=== PATIENT | male | born 1980 | race African-American/Black ===

== ENCOUNTER 2023-10-25 11:05 | Emergency (ER) | payer OTHER, SELFPAY ==
--- NOTE | ~2023-10-25 | XR_ITS ---
EXAMINATION: XR hand RT 2V INDICATION: Surgical history min embedded in the right hand TECHNIQUE: Two views of the right hand are obtained. COMPARISON: None available FINDINGS: A surgical instrument enters the palmar surface of the hand. Its tip appears to project in the trapezium. No fracture is identified. The soft tissues are unremarkable. IMPRESSION: 1. Surgical instrument penetrating the palmar surface of the hand and appearing to end with its tip i n the trapezium. Reviewed, dictated and finalized at location B. TYPE MECHANIC IMPRESSION: 1. Surgical instrument penetrating the palmar surface of the hand and appearing to end with its tip in the trapezium.
[2023-10-25 11:08] VITALS: BP 184/103; PULSE 93; RESP 20; TEMP 36.6; O2SAT 100
[2023-10-25 11:19] VITALS: BP 184/97; PULSE 85; RESP 18; O2SAT 99
--- NOTE | 2023-10-25 12:00 | ED.SKABFB ---
HPI - Skin/Abscess/Foreign Bdy General Chief complaint: Skin/Abscess/Foreign Body Stated complaint: FOREIGN BODY Time Seen by Provider: 10/25/23 11:18 History of Present Illness HPI narrative: Patient is a 43-year-old male who presents ER with foreign body to the right hand. He works in sterile processing and accidentally stabbed himself with a [employer] Depth Gauge. he has no numbness or tingling to the hand. He does feel as though he might have some limited range of motion to the thumb. Patient is ambidextrous but learned to write with his right hand. His tetanus shot is up-to-date. He tried to remove the foreign body himself but there is a hook on the end that has not allowed it to come out. Related Data Allergies Allergy/AdvReac Type Severity Reaction Status Date / Time No Known Allergies Allergy Verified 10/25/23 11:15 Review of Systems Constitutional: Constitutional: Reports no additional constitutional complaints Musculoskeletal: Musculoskeletal: Denies arthralgias and Denies joint swelling Comments: hand FB Integumentary/Breasts: Skin/Breast: Reports system reviewed and no additional complaints, except as docu Neurologic: Reports system reviewed and no additional complaints, except as documented PMFSH Past Medical History Medical History (Updated 10/25/23 @ 12:35 by Gary Estrada MD) Hypertension Surgical History Surgical History (Updated 10/25/23 @ 12:03 by Gary Estrada MD) No pertinent past surgical history Social History Social History (Updated 10/25/23 @ 12:03 by Gary Estrada MD) Tobacco type: cigars Exam Narrative: GENERAL: Well-appearing, well-nourished, and in no acute distress. HEAD: Normocephalic, atraumatic. CHEST: Clear to auscultation. No respiratory distress. HEART: Regular rate and rhythm. Normal peripheral pulses. EXTREMITIES: right hand exam with foreign body penetrating inferior aspect of the thenar eminence. Patient with full extension and flexion of the thumb on the feels like he cannot perform lateral range of motion. Neurovascularly intact. SKIN: Warm, dry, no rash. NEURO: No focal deficits. Alert and oriented x3. PSYCH: Normal mood and affect. Course Course Emergency Course: Patient resting comfortably. Surgical instrument removed. Neurovascular intact. Discharge home. Vital Signs Vital signs: Vital Signs Temperature 97.8 F 10/25/23 11:08 Pulse Rate 93 10/25/23 11:08 Respiratory Rate 20 10/25/23 11:08 Blood Pressure 184/103 H 10/25/23 11:08 Pulse Oximetry 100 10/25/23 11:08 Oxygen Delivery Room Air 10/25/23 11:08 Temperature 97.8 F 10/25/23 11:08 Pulse Rate 85 10/25/23 11:19 Respiratory Rate 18 10/25/23 11:19 Blood Pressure 184/97 H 10/25/23 11:19 Pulse Oximetry 99 10/25/23 11:19 Oxygen Delivery Room Air 10/25/23 11:08 Procedures Foreign Body Removal Foreign Body #1: Foreign Body Removal Date: 10/25/23 Foreign Body Removal Time: 12:33 Site: right and hand Description of foreign body: other (surgical instrument) Sedation/Analgesia: other (lido 1% with epi) Technique: manual removal Confirmed by:: direct visualization Complications: none Post-procedure exam: awake, alert Neurovascular: normal distal pulse, normal capillary fill, distal light touch sensation intact and distal motor function normal Discharge Plan Discharge Clinical Impression: Foreign body hand Patient Disposition: Home, Self-Care Condition: Stable Instructions: Soft Tissue Foreign Body (ED) Additional Instructions: Return the ER if your hand is red/ hot /swollen, the wound is draining pus, or you have additional concerns. Follow-up/Referrals: UNKNOWN,DOCTOR [Primary Care Provider] - Stand Alone Forms: Work/School Release IP
[2023-10-25 12:41] VITALS: BP 169/95; PULSE 78; RESP 18; O2SAT 98
== END 2023-10-25 13:09 | disposition home or self-care (01) ==
PROVIDERS: Emergency Provider Emergency Medicine
DX: S60.551A Superficial foreign body of right hand, initial encounter (principal); W26.8XXA Contact with other sharp object(s), not elsewhere classified, initial encounter; I10 Essential (primary) hypertension
CPT/HCPCS: 73120; 99283

== ENCOUNTER 2024-03-27 12:01 | Emergency (ER) | payer OTHER, SELFPAY ==
--- NOTE | ~2024-03-27 | XR_ITS ---
Left Knee Technique: AP, lateral, and sunrise views were obtained. Clinical History: Pain Findings: No fracture or dislocation is seen. Osseous alignment is anatomic. Joint spaces are preserv ed without degenerative or erosive change. Large joint effusion is seen. Impression: No fracture or dislocation. Large joint effusion. Reviewed, dictated and finalized at [facility]. Impression: No fracture or dislocation. Large joint effusion.
[2024-03-27 12:16] VITALS: BP 197/118; PULSE 102; RESP 16; TEMP 35.9; O2SAT 100
--- NOTE | 2024-03-27 15:12 | ED.EXTPRO ---
HPI - Extremity Problem General Chief complaint: Extremity Problem,Nontraumatic Stated complaint: left knee pain Time Seen by Provider: 03/27/24 12:37 Source: patient Mode of arrival: ambulatory Limitations: no limitations History of Present Illness HPI Narrative: 44-year-old with a history of hypertension, way of the knee here with complaints of pain, swelling to his left knee for past 1 day. He denies any trauma. Patient states that he was diagnosed with a severe arthritis of his knee and was advised the replacement several years ago. Presently denies any trauma. No history of fever or chills. MD Complaint: joint swelling Onset (ago): day(s) (1) Pain Consistency: constant Location: left Quality: aching Radiation: none Exacerbating factors: range of motion and weight bearing Related Data Allergies Allergy/AdvReac Type Severity Reaction Status Date / Time No Known Allergies Allergy Verified 03/27/24 12:02 Review of Systems Review of Systems: All systems reviewed & are unremarkable except as noted in HPI and below Constitutional: Constitutional: Reports no additional constitutional complaints Eyes: Eyes: Reports no additional eye complaints ENT: Reports system reviewed and no additional complaints, except as documented Cardiovascular: Cardiovascular: Reports no additional cardiovascular complaints Respiratory: Respiratory: Reports no additional respiratory complaints Gastrointestinal: Gastrointestinal: Reports no additional gastrointestinal complaints Musculoskeletal: Musculoskeletal: Reports as per HPI Neurologic: Reports system reviewed and no additional complaints, except as documented PMFSH Past Medical History Medical History (Updated 03/27/24 @ 15:14 by Alejandro Hyde MD) Hypertension Surgical History Surgical History No pertinent past surgical history Social History Social History Tobacco type: cigars Exam Narrative: GENERAL: Well-appearing, well-nourished, and in no acute distress. HEAD: Normocephalic, atraumatic. EYES: PERRLA and EOMI. ENT: Nares clear, no rhinorrhea or epistaxis. Mucous membranes moist. NECK: Supple. CHEST: Clear to auscultation. No respiratory distress. HEART: Regular rate and rhythm. No murmur heard. Normal peripheral pulses. EXTREMITIES: Normal range of motion. No edema. examination of his left knee shows moderate amount of joint effusion pain full ROM. SKIN: Warm, dry, no rash. NEURO: No focal deficits. Alert and oriented x3. PSYCH: Normal mood and affect. Course Vital Signs Vital signs: Vital Signs Temperature 35.9 C L 03/27/24 12:16 Pulse Rate 102 H 03/27/24 12:16 Respiratory Rate 16 03/27/24 12:16 Blood Pressure 197/118 H 03/27/24 12:16 Pulse Oximetry 100 03/27/24 12:16 Temperature 35.9 C L 03/27/24 12:16 Pulse Rate 102 H 03/27/24 12:16 Respiratory Rate 16 03/27/24 12:16 Blood Pressure 197/118 H 03/27/24 12:16 Pulse Oximetry 100 03/27/24 12:16 Procedures Joint Aspiration/Injection Joint Asp./Inject. 1: Joint Aspiration Date: 03/27/24 Side of body: left Joint Aspirated: knee Ultrasound Guidance: No Skin Prep: Povidone-Iodine1% Local Anesthetic: lidocaine 1% Amount of anesthesia used (mL): 5 Needle Size Used: 20G Fluid Obtained: other (straw) Total fluid obtained (mL): 15 Complications: none MDM - Extremity (Nontraumatic) Lab Data Labs: Lab Results 03/27/24 03/27/24 03/27/24 Range/Units 14:20 14:20 14:20 Synovial Source Synovial fluid Cancelled Synovial Color Yellow Cancelled (Colorless) Synovial Appearance Hazy A (Clear) Synovial RBC (0-0) /uL Synovial Nuc Cells (0-200) /uL Synovial Neutrophils (0-25) % Synovial Lymphocytes % Synovial Monocytes % Synovial Macrophages
[2024-03-27 17:52] LABS: Appearance Synovial Fluid Hazy (Clear); Color Synovial Fluid Yellow (Colorless); Nucleated Cell Synovial Fluid 8689 /uL (0-200); RBC Synovial Fluid 4000 /uL (0-0); Source Synovial Fluid Synovial fluid
[2024-03-27 17:53] LABS: Lymphocytes Synovial Fluid 6 %; Monocytes Synovial Fluid 3 %; Neutrophils Synovial Fluid 91 % (0-25)
[2024-03-27 17:57] LABS: Crystals Synovial Fluid None Seen (None Seen)
[2024-03-30 22:49] LABS: Total Protein Synovial Fluid 4.8 g/dL (1.0-3.0)
[2024-04-01 16:57] LABS: Glucose Synovial Fluid 193 mg/dL
== END 2024-03-27 15:38 | disposition home or self-care (01) ==
PROVIDERS: Emergency Provider Family Medicine
DX: M25.462 Effusion, left knee (principal); I10 Essential (primary) hypertension; F17.290 Nicotine dependence, other tobacco product, uncomplicated
CPT/HCPCS: 20610; 73564; 82945; 84157; 87070; 87075; 87205; 89051; 89060; 99283

== ENCOUNTER 2024-09-26 09:48 | Emergency (ER) | payer OTHER, SELFPAY ==
--- NOTE | ~2024-09-26 | CT_ITS ---
CT facial bones w con Ordering provider: Tho Hollingsworth PA-C History: . R jaw swelling, onset x 24 hours . Comparison: None. Technique: Thin slice axial CT of the facial bones was performed without contrast. Coronal and sagit lizzie reformatted images were also obtained. . Automated exposure control and iterative reconstruction technique were employed. The dose-length product was 700.70 mGy-cm. FINDINGS: PARANASAL SINUSES: Well aerated. BONES: No facial fracture including no nasal bone fracture. ORBITS AND SUPERFICIAL SOFT TISSUES: The optic globes and orbits are normal. Soft tissue swelling is seen in the right submandibular area which measures 3.2 x 2.6 cm which is mos t likely inflamed lymph node with possible abscess formation. Further evaluation advised. Extension o f this inflammatory changes to the right masseter muscle with possible abscess formation adjacent to the lower mandible is seen measuring 2.3 x 1.1 cm. Fat stranding is seen in the subcutaneous tissues and the right side. Enlarged right submandibular lymph nodes is also noted. Dental caries is seen in the upper and lower mandibles. Otherwise, The superficial soft tissues are normal. VISUALIZED MASTOIDS: Well aerated. LIMITED VISUALIZED BRAIN PARENCHYMA: Normal. IMPRESSION: Soft tissues tissue density in the right lower jaw area with highly suggestive of an inflamed lymph n ode and abscess formation. Further evaluation and follow-up is advised. No facial fracture. Reviewed, dictated and finalized at location A. FILER IMPRESSION: Soft tissues tissue density in the right lower jaw area with highly suggestive of an inflamed lymph node and abscess formation. Further evaluation and follow- up is advised. No facial fracture.
[2024-09-26 10:07] VITALS: BP 198/106; PULSE 95; RESP 20; TEMP 36.2; O2SAT 100
--- NOTE | 2024-09-26 10:11 | ED_ITS ---
HPI - Skin/Abscess/Foreign Bdy General Chief complaint: Skin/Abscess/Foreign Body <Tho Hollingsworth PA-C - Last Filed: 09/26/24 15:12> Stated complaint: facial swelling <Tho Hollingsworth PA-C - Last Filed: 09/26/24 15:12> Time Seen by Provider: 09/26/24 10:12 <Tho Hollingsworth PA-C - Last Filed: 09/26/24 15:12> Focused HPI: This is a 44-year-old male who presents to the ED for chief complaint of jaw swelling times 24 hours. States that yesterday he was feeling fine and having minimal pain. He reports a little bit of discomfort in the right lower jaw and notes that he does have known dental problems but the other sudden onset of swelling is why he is here today. Denies fevers, chills, nausea, vomiting. GENERAL: Well-appearing, well-nourished, and in no acute distress. HEAD: Normocephalic, atraumatic. ENT: Marked soft tissue swelling of the right mandibular region. Floor of the mouth intact. No trismus or drooling. Minimal tenderness to the area of swelling. Minimal induration or warmth. CHEST: Clear to auscultation. No respiratory distress. HEART: Regular rate and rhythm. NEURO: Alert and oriented x3. Patient screened in triage and initial orders placed. Additional care and disposition to be based upon diagnostic testing and treatment. <Tho Hollingsworth PA-C - Last Filed: 09/26/24 15:12> History of Present Illness HPI narrative: I agree with the above HPI <Darwin Singh MD - Last Filed: 09/26/24 17:47> Related Data Allergies/Adverse reactions: Allergies Allergy/AdvReac Type Severity Reaction Status Date / Time No Known Allergies Allergy Verified 09/26/24 09:48 <Tho Hollingsworth PA-C - Last Filed: 09/26/24 15:12> Review of Systems Review of Systems: All systems reviewed & are unremarkable except as noted in HPI and below <Darwin Singh MD - Last Filed: 09/26/24 17:47> PMFSH Past Medical History Medical History: Medical History (Updated 09/26/24 @ 12:52 by Darwin Singh MD) Hypertension <Tho Hollingsworth PA-C - Last Filed: 09/26/24 15:12> Surgical History Surgical History: Surgical History No pertinent past surgical history <Tho Hollingsworth PA-C - Last Filed: 09/26/24 15:12> Social History Social History: Social History Tobacco type: cigars <Tho Hollingsworth PA-C - Last Filed: 09/26/24 15:12> Exam Narrative: APPEARANCE: Well appearing, no pain, no distress, well-nourished. HEAD: normocephalic, atraumatic. EYES: PERRLA/EOMI, conjunctivae clear. NOSE: Normal no drainage EARS:TMS clear with good light reflex. THROAT: Pharynx clear, no exudate. NECK: Supple. No adenopathy, no masses. RESPIRATORY: Airway patent, respirations nonlabored. Clear to auscultation bilaterally, no rales, rhonchi, wheezing. CARDIOVASCULAR: Regular rate and rhythm without murmurs rubs or gallops. ABDOMINAL: Soft, nontender, nondistended, normal bowel sounds MUSCULOSKELETAL: Moves all extremities. Strength/ROM intact, No edema, No calf tenderness. NEURO: Alert. Cranial nerves II through XII intact. Good gait. Good coordination SKIN: Right-sided facial swelling <Darwin Singh MD - Last Filed: 09/26/24 17:47> Course Vital Signs Vital signs: Vital Signs Temperature 97.2 F L 09/26/24 10:07 Pulse Rate 95 09/26/24 10:07 Respiratory Rate 20 09/26/24 10:07 Blood Pressure 198/106 H 09/26/24 10:07 Pulse Oximetry 100 09/26/24 10:07 Oxygen Delivery Room Air 09/26/24 10:07 Temperature 97.2 F L 09/26/24 10:07 Pulse Rate 93 09/26/24 13:08 Respiratory Rate 16 09/26/24 13:08 Blood Pressure 150/98 H 09/26/24 13:08 Pulse Oximetry 100 09/26/24 13:08 Oxygen Delivery Room Air 09/26/24 10:07 <Tho Hollingsworth PA-C - Last Filed: 09/26/24 15:12> Vital Signs Temperature 97.2 F L 09/26/24 10:07 Pulse Rate 95 09/26/24 10:07 Respiratory Rate 20 09/26/24 10:07 Blood Pressure 198/106 H 09/26/24 10:07 Pulse Oximetry 100 09/26/24 10:07 Oxygen Delivery Room Air 09/26/24 10:07 Temperature 97.2 F L 09/26/24 10:07 Pulse Rate 93 09/26/24 13:08 Respiratory Rate 16 09/26/24 13:08 Blood Pressure 150/98 H 09/26/24 13:08 Pulse Oximetry 100 09/26/24 13:08 Oxygen Delivery Room Air 09/26/24 10:07 <Darwin Singh MD - Last Filed: 09/26/24 17:47> MDM - Skin/Abscess/Foreign Bdy MDM Narrative Medical decision making narrative: 44-year-old male present to the emergency department for evaluation for right-sided facial swelling. Patient denies any associated pain. Patient is afebrile with no leukocytosis and hemoglobin of 13.7. Head CT showed differential of abscesses versus large lymph nodes. On bed side ultrasound I did not find an abscess amenable to drainage. Patient was started on IV clindamycin in the emergency department. Patient was advised that while the abscess does not be drainage today it may need drainage in the future and patient was strongly encouraged to have follow-up with his primary care physician for <Darwin Singh MD - Last Filed: 09/26/24 17:47> Differential Diagnosis Differential diagnosis: Likely abscess of skin or subcutaneous tissue and allergic reaction to drug <Darwin Singh MD - Last Filed: 09/26/24 17:47> Lab Data Attestation: I reviewed the patient's lab results. <Darwin Singh MD - Last Filed: 09/26/24 17:47> Result diagrams: 09/26/24 10:45 09/26/24 10:45 <Tho Hollingsworth PA-C - Last Filed: 09/26/24 15:12> Labs: Lab Results 09/26/24 Range/Units 10:45 WBC 9.5 (4.5-10.0) K/mm3 RBC 4.39 L (4.6-6.20) M/mm3 Hgb 13.7 L (14.0-18.0) g/dL Hct 40.2 L (42.0-52.0) % MCV 91.6 (80-100) fl MCH 31.2 (26-34) pg MCHC 34.1 (32-36) g/dl RDW 14.4 (11.5-14.5) % Plt Count 235 (150-375) k/mm3 MPV 9.0 (7.4-10.4) fl Immature Gran % (Auto) 1.0 H (0-0.5) % Neut % (Auto) 65.5 (45.5-73.1) % Lymph % (Auto) 24.1 (18.3-44.2) % [place] % (Auto) 7.3 (2.6-8.5) % Eos % (Auto) 1.7 (0-4.4) % Baso % (Auto) 0.4 (0.2-1.2) % Lymph # (Auto) 2.28 (0.9-3.2) K/mm3 [place] # (Auto) 0.7 H (0.1-0.6) K/mm3 Eos # (Auto) 0.2 (0-0.3) K/mm3 Baso # (Auto) 0.0 (0.0-0.1) K/mm3 Abs Immat Gran (auto) 0.09 H (0.00-0.031) K/mm3 Absolute Neuts (auto) 6.2 (1.3-6.7) K/mm3 Absolute Nucleated RBC 0.000 (0.0-0.012) K/mm3 Nucleated RBC % 0.0 (0.0-0.2) % Sodium 134 L (137-145) mmol/L Potassium 4.1 (3.4-5.0) mmol/L Chloride 100 (98-107) mmol/L Carbon Dioxide 28 (22-30) mmol/L Anion Gap 6 (4-12) mmol/L BUN 14 (9-20) mg/dL Creatinine 0.80 (0.7-1.3) mg/dL Estim Creat Clear Calc 167 ml/min Estimated GFR > 60 (59 - ) Glucose 266 H (65-110) mg/dL Calcium 9.2 (8.4-10.2) mg/dL Total Bilirubin 0.4 (0.2-1.3) mg/dL AST 49 (17-59) U/L ALT 48 (6-50) U/L Alkaline Phosphatase 94 (38-126) U/L C-Reactive Protein 1.6 H (<1.0) mg/dL Total Protein 8.0 (6.3-8.2) g/dL Albumin 4.2 (3.5-5.1) g/dL <Tho Hollingsworth PA-C - Last Filed: 09/26/24 15:12> Lab Results 09/26/24 Range/Units 10:45 WBC 9.5 (4.5-10.0) K/mm3 RBC 4.39 L (4.6-6.20) M/mm3 Hgb 13.7 L (14.0-18.0) g/dL Hct 40.2 L (42.0-52.0) % MCV 91.6 (80-100) fl MCH 31.2 (26-34) pg MCHC 34.1 (32-36) g/dl RDW 14.4 (11.5-14.5) % Plt Count 235 (150-375) k/mm3 MPV 9.0 (7.4-10.4) fl Immature Gran % (Auto) 1.0 H (0-0.5) % Neut % (Auto) 65.5 (45.5-73.1) % Lymph % (Auto) 24.1 (18.3-44.2) % [place] % (Auto) 7.3 (2.6-8.5) % Eos % (Auto) 1.7 (0-4.4) % Baso % (Auto) 0.4 (0.2-1.2) % Lymph # (Auto) 2.28 (0.9-3.2) K/mm3 [place] # (Auto) 0.7 H (0.1-0.6) K/mm3 Eos # (Auto) 0.2 (0-0.3) K/mm3 Baso # (Auto) 0.0 (0.0-0.1) K/mm3 Abs Immat Gran (auto) 0.09 H (0.00-0.031) K/mm3 Absolute Neuts (auto) 6.2 (1.3-6.7) K/mm3 Absolute Nucleated RBC 0.000 (0.0-0.012) K/mm3 Nucleated RBC % 0.0 (0.0-0.2) % Sodium 134 L (137-145) mmol/L Potassium 4.1 (3.4-5.0) mmol/L Chloride 100 (98-107) mmol/L Carbon Dioxide 28 (22-30) mmol/L Anion Gap 6 (4-12) mmol/L BUN 14 (9-20) mg/dL Creatinine 0.80 (0.7-1.3) mg/dL Estim Creat Clear Calc 167 ml/min Estimated GFR > 60 (59 - ) Glucose 266 H (65-110) mg/dL Calcium 9.2 (8.4-10.2) mg/dL Total Bilirubin 0.4 (0.2-1.3) mg/dL AST 49 (17-59) U/L ALT 48 (6-50) U/L Alkaline Phosphatase 94 (38-126) U/L C-Reactive Protein 1.6 H (<1.0) mg/dL Total Protein 8.0 (6.3-8.2) g/dL Albumin 4.2 (3.5-5.1) g/dL <Darwin Singh MD - Last Filed: 09/26/24 17:47> Imaging Data Radiologist's impression: Impressions Face CT 09/26/24 12:11 IMPRESSION: Soft tissues tissue density in the right lower jaw area with highly suggestive of an inflamed lymph node and abscess formation. Further evaluation and follow- up is advised. No facial fracture. <Darwin Singh MD - Last Filed: 09/26/24 17:47> Discharge Plan Discharge Clinical Impression: Abscess of skin or subcutaneous tissue <Tho Hollingsworth PA-C - Last Filed: 09/26/24 15:12> Patient Disposition: Home, Self-Care <Tho Hollingsworth PA-C - Last Filed: 09/26/24 15:12> Condition: Stable <Tho Hollingsworth PA-C - Last Filed: 09/26/24 15:12> Instructions: Antibiotic Form <Tho Hollingsworth PA-C - Last Filed: 09/26/24 15:12> Additional Instructions: Antibiotic as directed until completed. Have close follow-up with your primary care physician. You should also have close follow-up with a dentist. If you have any worsening symptoms then please call or return to the emergency department. <Tho Hollingsworth PA-C - Last Filed: 09/26/24 15:12> Prescriptions: New clindamycin HCl 300 mg capsule 300 mg PO Q6H 7 Days Qty: 28 0RF No Action hydrocodone-acetaminophen 5-325 mg tablet 1 tablet PO Q8H PRN (Reason: pain) Qty: 14 0RF <Tho Hollingsworth PA-C - Last Filed: 09/26/24 15:12> Follow-up/Referrals: UNKNOWN,DOCTOR [Primary Care Provider] - <Tho Hollingsworth PA-C - Last Filed: 09/26/24 15:12>
[2024-09-26 10:50] LABS: Basophils Percent Auto 0.4 % (0.2-1.2); Eosinophils Absolute Auto 0.2 K/mm3 (0-0.3); Eosinophils Percent Auto 1.7 % (0-4.4); Hematocrit 40.2 % (42.0-52.0); Hemoglobin 13.7 g/dL (14.0-18.0); Immature Granulocyte Absolute 0.09 K/mm3 (0.00-0.031); Lymphocytes Absolute Auto 2.28 K/mm3 (0.9-3.2); Lymphocytes Percent Auto 24.1 % (18.3-44.2); Mean Corpuscular HGB Conc 34.1 g/dl (32-36); Mean Corpuscular Hemoglobin 31.2 pg (26-34); Mean Corpuscular Volume 91.6 fl (80-100); Monocytes Absolute Auto 0.7 K/mm3 (0.1-0.6); Monocytes Percent Auto 7.3 % (2.6-8.5); Neutrophils Absolute Auto 6.2 K/mm3 (1.3-6.7); Neutrophils Percent Auto 65.5 % (45.5-73.1); Platelet Count Result 235 k/mm3 (150-375); Red Blood Count 4.39 M/mm3 (4.6-6.20); Red Cell Distribution Width 14.4 % (11.5-14.5); White Blood Count 9.5 K/mm3 (4.5-10.0)
[2024-09-26 11:05] LABS: Alanine Aminotransferase 48 U/L (6-50); Albumin Level 4.2 g/dL (3.5-5.1); Alkaline Phosphatase 94 U/L (38-126); Anion Gap 6 mmol/L (4-12); Aspartate Amino Transferase 49 U/L (17-59); Bilirubin,Total 0.4 mg/dL (0.2-1.3); Blood Urea Nitrogen 14 mg/dL (9-20); Calcium 9.2 mg/dL (8.4-10.2); Carbon Dioxide 28 mmol/L (22-30); Chloride 100 mmol/L (98-107); Estimated CRCL calculation 167 ml/min; Estimated Glomerular Filt Rate > 60; Glucose 266 mg/dL (65-110); Potassium 4.1 mmol/L (3.4-5.0); Sodium 134 mmol/L (137-145)
[2024-09-26] MEDS: CLINDAMYCIN 600 MG/D5W 50 ML 600 MG/50 ML PIGGYBACK 100 MG IVPB (12:49)
[2024-09-26 13:00] LABS: CRP 1.6 mg/dL (<1.0)
[2024-09-26 13:08] VITALS: BP 150/98; PULSE 93; RESP 16; O2SAT 100
== END 2024-09-26 14:25 | disposition home or self-care (01) ==
PROVIDERS: Physician Assistant; Emergency Provider Emergency Medicine
DX: L02.01 Cutaneous abscess of face (principal); I10 Essential (primary) hypertension; F17.290 Nicotine dependence, other tobacco product, uncomplicated
CPT/HCPCS: 36415; 70487; 80053; 85025; 86140; 96365; 99284; Q9967